=== PATIENT | male | born 1985 | race Caucasian/White ===

== ENCOUNTER → 2024-10-24 | Outpatient (CLI) | payer BC, SELFPAY ==
--- NOTE | 2024-10-24 09:04 | XR_ITS ---
Examination: Right elbow 3 views Technique: Elbow AP, oblique, lateral 3 views Exam date and time: October 24, 2024 0910 hours INDICATIONS: Right elbow pain beginning 4 months ago. FINDINGS: No fracture or dislocation. No arthritic change IMPRESSION: Negative for osseous abnormality.
== END | disposition home or self-care (01) ==
LOC: CDIM 08:54
PROVIDERS: PCP Family Medicine; Referring Provider Internal Medicine; Visit Provider Internal Medicine
DX: M25.521 Pain in right elbow (principal)
CPT/HCPCS: 73080

== ENCOUNTER → 2024-12-22 | Outpatient (CLI) | payer BC, SELFPAY ==
--- NOTE | 2024-12-22 12:00 | XR_ITS ---
Examination: MRI right elbow, without contrast Date and time of exam: January 01, 2025 1249 hours INDICATIONS: Anterior elbow pain weakness 6 months Technique: Multiple axial sagittal and coronal images of the left elbow have been obtained with the Siemens high-resolution 1.5 [employer] MRI scanner. Images obtained include T2-weighted fat-suppressed sagittal sections, TR 3500, TE 46, T2 weighted coronal fat suppressed images, TR 3050, TE 84, T2-weighted transverse fat suppressed images, TR 3260, TE 63, proton density transverse images, TR 4720 TE 46, and T1 weighted coronal images, TR 560, TE 13. Findings: No occult fracture bone contusion or marrow edema Intact lateral ligamentous complexes Moderate strain common flexor tendon Normal insertion long head of the biceps into the radial tuberosity Small elbow effusion Increased signal in the triceps insertion, moderate strain No ossified joint bodies No avascular necrosis IMPRESSION: Moderate strain common flexor tendon Normal insertion long head of the biceps is in the radial tuberosity. Moderate strain triceps insertion
== END | disposition home or self-care (01) ==
PROVIDERS: PCP Internal Medicine; Referring Provider Internal Medicine; Visit Provider Internal Medicine
DX: S46.811A Strain of other muscles, fascia and tendons at shoulder and upper arm level, right arm, initial encounter (principal); S46.311A Strain of muscle, fascia and tendon of triceps, right arm, initial encounter; X58.XXXA Exposure to other specified factors, initial encounter
CPT/HCPCS: 73221